=== PATIENT | male | born 1965 | race Two or more races ===

== ENCOUNTER 2021-06-13 10:21 | Emergency (ER) | payer OTHER ==
[~2021-06-13] VITALS: Ht 162.6 cm; Wt 81.2 kg
[2021-06-13] MEDS ORDERED: COZAAR50 MG PO (11:14)
[2021-06-13] MEDS ORDERED: NORFLEX100MG PO (14:27)
[2021-06-13] MEDS ORDERED: BACTRIM DS TAB1 EACH PO (14:29)
== END 2021-06-13 14:48 | disposition home or self-care (01) ==
LOC: ER 10:21
DX: M54.89 Other dorsalgia (principal); R10.32 Left lower quadrant pain